=== PATIENT | male | born 1960 | race Caucasian/White ===

== ENCOUNTER 2025-06-07 21:49 | Emergency (ER) | payer BC, SELFPAY ==
--- OUTSIDE RECORDS SUMMARY | 2025-06-07 21:51 | XMS_ITS | Data Portability ---
Author Organization [place] - [facility], [facility] Address [address] [place] [address] Care Team Providers Care Maintenance Person Name Role Phone VOTELISABEL Primary Care Provider [phone] Assessment Encounter Date Assessment Date Assessment LastModified by Organization Details LastModified Time 04/05/2023 04/05/2023 62M s/p RALP + PLND on 03/30/21 for pT3aN0 [place] 3+4=7 prostate cancer (+SMS (left apex), -SVI, 0/9 LN). HOMERO. Reviewed risk of recurrence and need for ongoing follow-up for PSA monitoring. 1) Prostate cancer - f/u in 6 months with PSA 2) LLQ pain, mild, recurrent - no hernia on exam - CT A/P without contrast to eval for stones and hernia [email or web address] Not available 04/05/2023 09:28:36 10/11/2023 10/11/2023 63M s/p RALP + PLND on 03/30/21 for pT3aN0 [place] 3+4=7 prostate cancer (+SMS (left apex), -SVI, 0/9 LN). HMOERO. Reviewed risk of recurrence and need for ongoing follow-up for PSA monitoring. 1) Prostate cancer - f/u in 6 months with PSA 2) LLQ pain, mild, recurrent - possibly from kidney stones - no hernia on exam 3) Kidney stones - discussed stone prevention diet - f/u KUB in 6 months 4) Left renal atrophy - was told since HS had this - check NM renal scan to further evaluate this [email or web address] Not available 10/11/2023 10:08:08 04/10/2024 04/10/2024 63M s/p RALP + PLND on 03/30/21 for pT3aN0 [place] 3+4=7 prostate cancer (+SMS (left apex), -SVI, 0/9 LN). HOMERO. Reviewed risk of recurrence and need for ongoing follow-up for PSA monitoring. 1) Prostate cancer - f/u in 6 months with PSA 2) LLQ pain, mild, recurrent - possibly from kidney stones - no hernia on exam 3) Kidney stones - discussed stone prevention diet 4) Left renal atrophy - was told since HS had this - NM renal scan with essentially normal renal function [email or web address] Not available 04/10/2024 10:23:39 10/09/2024 10/09/2024 64M s/p RALP + PLND on 03/30/21 for pT3aN0 [place] 3+4=7 prostate cancer (+SMS (left apex), -SVI, 0/9 LN). HOMERO. Reviewed risk of recurrence and need for ongoing follow-up for PSA monitoring. 1) Prostate cancer - f/u in 6 months with PSA 2) LLQ pain, mild, recurrent - resolved 3) Kidney stones - stone prevention diet 4) Left renal atrophy - was told since HS had this - NM renal scan with essentially normal renal function 5) Erectile dysfunction - refill V20 [email or web address] Not available 10/09/2024 11:34:06 04/09/2025 04/09/2025 64M s/p RALP + PLND on 03/30/21 for pT3aN0 [place] 3+4=7 prostate cancer (+SMS (left apex), -SVI, 0/9 LN). HOMERO. Reviewed risk of recurrence and need for ongoing follow-up for PSA monitoring. 1) Prostate cancer - f/u in 6 months with PSA 2) LLQ pain, mild, recurrent - resolved 3) Kidney stones - stone prevention diet 4) Left renal atrophy - was told since HS had this - NM renal scan with essentially normal renal function 5) Erectile dysfunction - refill V20 [email or web address] Not available 04/09/2025 14:36:33 Plan of Treatment Reminders Order Date Submit Date Provider Last Modified By Organization Details Last Modified Time Details Appointments PSA 10 2024 09:50A M [facility] Not available Not available Not available ESTABL ISHED 10 2024 10:10A M Vaughn hayes MD, PHD Not available Not available Not available Lab PSA, serum or plasma 2024 025 [email or web address] [facility], [address], [place], [address], 04/09/2025 14:36:40 PSA, serum or plasma 2023 024 [email or web address] [facility], [address], [place], [address], 10/09/2024 10:50:39 PSA, serum or plasma 2023 024 [email or web address] [facility], [address], [place], [address], 04/10/2024 09:47:27 PSA, serum or plasma 2022 023 [email or web address] [facility], [address], [place], [address], 10/11/2023 09:15:27 PSA, serum or plasma 2022 023 [email or web address] [facility], [address], [place], [address], 04/05/2023 09:28:37 Referral None record ed. Procedures None record ed. Surgeries None record ed. Imaging XR, kidney + ureter + bladde r - See Dr. Go goel at 9:10am . PSA first. , PREV HERE 3 2022 023 [facility] , [address], [place], [address], 04/10/2024 10:24:21 NM, kidney scan - eval differ ential functi on and obstru ction, left hydro 2022 023 [facility], [address], [place], [address], 10/12/2023 13:35:29 CT, abdome n + pelvis , w/o contra st - LLQ PAIN, HX PROSTA TE CA, NO PREV 2022 023 [facility] , [address], [place], [address], 04/24/2023 18:24:53 Medication Orders silden afil (pulmo nary hypert ension ) 20 mg tablet 2023 024 [id number], [address] [address], [place], [address], 10/09/2024 11:34:11 Patient TargetsNo targets recorded. Patient InstructionsNo instructions recorded. Reason for Referral None Reported. Results Created Date Observation Date Name Description Value Unit Range Abnormal Flag Note LastModifiedBy Organization Detail LastModifiedTime 04/05/2004/05/2023 PSA, serum or plasm a PSA <0.04n g/mL 0-4.0 Not Available [facility] [address], [place], [address], 03/31/2023 12:06:19 10/11/20 23 10/11/2023 PSA, serum or plasm a PSA <0.04 ng/ml 0-4.0 Not Available [facility] [address], [place], [address], 10/09/2023 09:31:52 04/10/2004/10/2024 PSA, serum or plasm a PSA <0.04 ng/ml 0-4.0 NG/mL Not Available [facility] [address], [place], [address], 03/18/2024 17:04:17 10/09/20 24 10/09/2024 PSA, serum or plasm a PSA <0.04 ng/mL 0-4.0 NG/mL Not Available [facility] [address], [place], [address], 10/07/2024 19:46:19 04/09/20 25 04/09/2025 PSA, serum or plasm a PSA <0.04n g/ml 0-4.0 NG/mL Not Available [facility] [address], [place], [address], 04/08/2025 13:59:08 04/24/20 23 04/24/2023 CT, abdom en + pelvi s, w/o contr ast EXAM: CT, ABDOME N + PELVIS , W/O CONTRA ST [facility]ATI [facility] DATE/T JD: 023 2:55 PM CDT INDICA TION: Unspec ified abdomi nal pain. COMPAR DIPTI: CT abdome n and pelvis dated 021. Bone scan dated 021. TECHNI QUE: CT scan of the abdome n and pelvis was perfor med withou t IV contra st. Multip lanar reform ats were obtain ed. Dose reduct ion techni ques were used. CONTRA ST: None. FINDIN GS: LOWER CHEST: Normal . HEPATO BILIAR Y: A few small hepati c cysts, which do not requir e follow -up. Otherw ise normal within the limita tions of an unenha nced exam. PANCRE : Normal . SPLEEN : Normal . ADRENA L GLANDS : Normal . KIDNEY S/BLAD KYLIE: Mild left and minima l right hydron ephros is, which transi tions to decomp ressed ureter at the ureter opelvi c juncti on bilate rally. No ureter al calcul i. No right intrar enal calcul i. Four nonobs tructi ng calyce al tip stones within the left kidney , measur ing betwee n 2 mm and 3 mm in diamet er. No bladde r wall thicke funmilayo or bladde r stones . BOWEL: Normal . Normal append ix. LYMPH NODES: No lympha denopa thy. VASCUL ATURE: Normal calibe r abdomi nal aorta. Access ory right renal artery . PELVIC ORGANS : Prosta tectom y. MUSCUL OSKELE SABINA: Mild degene rative change s of the visual ized skelet on. No aggres sive osseou s lesion s. Trace fat-co ntaini ng perium bilica l hernia . IMPRES FAYE: 1. Mild left and probab le minima l right hydron ephros is, which transi tions to decomp ressed ureter at the UPJ bilate rally. Findin gs sugges tive of bilate ral UPJ obstru ctions . Consid er evalua tion with Lasix renogr am and/or CT urogra m. 2. Nonobs tructi ng calyce al tip stones within the left kidney . This report was electr onical ly interp reted by: Kamaljit pollack MD on 2022 at 17:22 [email or web address] [facility] [address], [place], [address], 05/04/2023 16:30:02 11/02/20 23 11/02/2023 NM, kidne y scan No observ ation record ed. NURY [facility] [address], [place], [address], 02/07/2024 16:54:06 04/10/20 24 04/10/2024 XR, kidne y + urete r + bladd er EXAM: XR, KIDNEY + URETER + BLADDE R [facility]ATI ON: [facility] [place] DATE: 024 INDICA TION: Calcul us of kidney COMPAR DIPTI: Correl ate with CT abdome n and pelvis perfor med on 023 IMPRES FAYE: Modera te stool burden is seen throug hout the colon. Nonobs tructi ve bowel gas patter n. 3 mm calcul us is noted overly ing the left kidney . No discre te calcif icatio ns are seen overly ing the right kidney . Multil evel degene rative change s are seen in the spine. This report was electr onical ly interp reted by: Hema Ortiz MD on 2023 at 09:21 [email or web address] [facility] [address], [place], [address], 08/10/2024 20:49:36 Result Notes Documentation Provider Name and Address Organization Details Recorded Time Ct, Abdomen + Pelvis, W/o Contrast : EXAM: CT, ABDOMEN + PELVIS, W/O CONTRAST [facility] [place] DATE/TIME: 04/24/2023 2:55 PM CDT INDICATION: Unspecified abdominal pain. COMPARISON: CT abdomen and pelvis dated 04/07/2021. Bone scan dated 12/09/2020. TECHNIQUE: CT scan of the abdomen and pelvis was performed without IV contrast. Multiplanar reformats were obtained. Dose reduction techniques were used. CONTRAST: None. FINDINGS: LOWER CHEST: Normal. HEPATOBILIARY: A few small hepatic cysts, which do not require follow-up. Otherwise normal within the limitations of an unenhanced exam. PANCREAS: Normal. SPLEEN: Normal. ADRENAL GLANDS: Normal. KIDNEYS/BLADDER: Mild left and minimal right hydronephrosis, which transitions to decompressed ureter at the ureteropelvic junction bilaterally. No ureteral calculi. No right intrarenal calculi. Four nonobstructing calyceal tip stones within the left kidney, measuring between 2 mm and 3 mm in diameter. No bladder wall thickening or bladder stones. BOWEL: Normal. Normal appendix. LYMPH NODES: No lymphadenopathy. VASCULATURE: Normal caliber abdominal aorta. Accessory right renal artery. PELVIC ORGANS: Prostatectomy. MUSCULOSKELETAL: Mild degenerative changes of the visualized skeleton. No aggressive osseous lesions. Trace fat-containing periumbilical hernia. IMPRESSION: 1. Mild left and probable minimal right hydronephrosis, which transitions to decompressed ureter at the UPJ bilaterally. Findings suggestive of bilateral UPJ obstructions. Consider evaluation with Lasix renogram and/or CT urogram. 2. Nonobstructing calyceal tip stones within the left kidney. This report was electronically interpreted by: Kamaljit Hyatt MD on 04/24/2023 at 17:22 RACHELE [facility] 05/04/2023 16:30:02 Xr, Kidney + Ureter + Bladder : EXAM: XR, KIDNEY + URETER + BLADDER LOCATION: [facility] DATE: 04/10/2024 INDICATION: Calculus of kidney COMPARISON: Correlate with CT abdomen and pelvis performed on 04/24/2023 IMPRESSION: Moderate stool burden is seen throughout the colon. Nonobstructive bowel gas pattern. 3 mm calculus is noted overlying the left kidney. No discrete calcifications are seen overlying the right kidney. Multilevel degenerative changes are seen in the spine. This report was electronically interpreted by: Hema Ortiz MD on 04/10/2024 at 09:[address] [facility] 08/10/2024 20:49:36 Problems Name Problem SNOMED Code Status Onset Date Resolution Date Notes Provider Name and Address Organization Details Recorded Time Prostate specific antigen above reference range 943966927 Active 2020 [facility] 16:10:11 Erectile dysfunction 529417331 Active 2020 Vaughn hayes MD, PHD [address] [place] [address], [address], [facility] 1 11:53:05 Abdominal pain 10986671 Active 2022 Vaughn hayes MD, PHD [address] [place], [place] [address]IT E [address] [place] [address], [address], [facility] 3 09:27:56 Kidney stone 94188506 Active 2022 Vaughn hayes MD, PHD [address] [place], [place] [address], [address], [facility] 3 10:02:35 Hydronephrosis 79212512 Active 2022 Vaughn hayes MD, PHD [address] [place] [address], [address], [facility] 3 10:06:53 Problem Notes None recorded. Procedures Surgical History Date Name Laterality Status Provider Name and Address Organization Details Recorded Time 04/09/20 25 COMPLEX VISIT completed Teri Jarrett [place] [facility] 04/08/2025 13:59:12 04/09/20 25 RAW FINISH MILL OPERATOR/blood draw completed Teri Jarrett [place] [facility] 04/08/2025 13:59:12 10/09/20 24 COMPLEX VISIT completed Vaughn Jeffers MD, PHD [address] [facility],[address], [place], [address], [facility] 10/09/2024 11:33:51 10/09/20 24 RAW FINISH MILL OPERATOR/blood draw completed Teri Jarrett [place] [facility] 10/07/2024 19:46:26 04/10/20 24 RAW FINISH MILL OPERATOR/blood draw completed Peyman Randolph [facility] 03/18/2024 17:04:15 10/11/20 23 RAW FINISH MILL OPERATOR/blood draw completed Teri Jarrett [place] [facility] 10/11/2023 09:03:15 04/05/20 23 RAW FINISH MILL OPERATOR/blood draw completed Ira Bower [facility] 04/05/2023 08:58:39 10/05/20 22 Blood Draw/RAW FINISH MILL OPERATOR/PSA RESULTS completed Guru Grubbs [facility] 10/05/2022 09:00:54 04/06/20 22 Blood Draw/RAW FINISH MILL OPERATOR/PSA RESULTS completed Teri Jarrett [facility] 04/06/2022 08:55:04 09/30/20 21 Blood Draw/RAW FINISH MILL OPERATOR/PSA RESULTS completed Kajal Patton [facility] 09/30/2021 09:18:12 05/19/20 21 Blood Draw/RAW FINISH MILL OPERATOR/PSA RESULTS completed Denise Delgado [facility] 05/19/2021 09:28:48 03/30/20 21 Prostatectomy completed Denise Delgado [facility] 04/07/2021 11:01:43 11/20/19 21 Prostate Biopsy Procedure completed Rancho Felix MD [address] [place] [address],[address], [place], [address], [facility] 11/20/2020 17:24:03 11/20/19 21 URONAV completed Rancho Felix MD [address] [place] [address],[address], [place], [address], [facility] 11/20/2020 16:49:03 11/20/19 21 Tobramycin Injection completed Ly Whatley [facility] 11/20/2020 16:18:21 08/13/20 19 screening colonoscopy completed Ly Whatley [facility] 11/20/2020 16:08:48 Imaging Results None recorded. Procedure Notes None recorded. Medical Equipment None Reported. Allergies Allergen ID Allergen Name Allergen Category Reaction Reaction Severity Criticality Documentation Date Start Date Code Code System Note Provider Name and Address Organization Details Recorded Time 545014 Product containin g penicilli n (product) medicatio n Not available Not available Not available 11/20/2020 41462 8001 SNOMED Ly Phylicia [facility] 16:10:26 Medications Name Sig Start Date Stop Date Status Note LastModified by Organization Details LastModified Time losartan 50 mg tablet TAKE ONE TABLET BY MOUTH ONE TIME DAILY* active Not Available Not Available No t Available atorvastati n 20 mg tablet TAKE ONE TABLET BY MOUTH ONE TIME DAILY AT BEDTIME* active Not Available Not Available No t Available metoprolol succinate ER 50 mg tablet,exte nded release 24 hr TAKE ONE TABLET BY MOUTH ONE TIME DAILY* active Not Available Not Available No t Available chlorthalid one 25 mg tablet TAKE ONE TABLET BY MOUTH ONE TIME DAILY* active Not Available Not Available No t Available amlodipine 5 mg tablet TAKE ONE TABLET BY MOUTH ONE TIME DAILY* active Not Available Not Available No t Available ciprofloxac in 500 mg tablet TAKE ONE TABLET BY MOUTH EVERY TWELVE HOURS FOR 4 DAYS 05/19 completed Not Available Not Available Not Available losartan 25 mg tablet TAKE ONE TABLET BY MOUTH ONE TIME DAILY* 10/09 completed Not Available Not Available Not Available oxycodone 5 mg tablet 04/06 completed Not Available Not Available Not Available tadalafil 5 mg tablet take 4 tablets (20 mg) by mouth once per week prior to sexual activity. active Not Available Not Available No t Available sildenafil (pulmonary hypertensio n) 20 mg tablet Take 1-5 tabs daily as needed. 2023 active Not Available Not Available Not Avai lable GaviLyte-G 236 gram-22.74 gram-6.74 gram-5.86 gram oral solution Drink 2 liters the day before the procedure and 2 liters 6 hours prior to procedure .* active Not Available Not Available No t Available Vitals Date Recorded Body height Body mass index (BMI) Body weight Provider Name and Address Organization Details Last Updated DateTime 04/05/2023 182.88 cm 29.2 kg/m2 [address]457.[address] [facility] 04/05/2023 08:57:31 Date Recorded Body height Body mass index (BMI) Body weight Provider Name and Address Organization Details Last Updated DateTime 04/09/2025 182.88 cm 28.5 kg/m2 20074.4 g Vaughn tom MD, PHD [address] [place] [address], [phone] [place] [address] 04/09/2025 14:17:03 Date Recorded Body height Body mass index (BMI) Body weight Provider Name and Address Organization Details Last Updated DateTime 04/10/2024 182.88 cm 28.5 kg/m2 94549.4 g Vaughn tom MD, PHD [address] [place] [address], [phone] [place] [address] 04/10/2024 09:41:51 Date Recorded Body height Body mass index (BMI) Body weight Provider Name and Address Organization Details Last Updated DateTime 10/09/2024 182.88 cm 28.5 kg/m2 07697.4 g Vaughn tom MD, PHD [address] [place] [address] 10/09/2024 11:25:01 Date Recorded Body height Body mass index (BMI) Body weight Provider Name and Address Organization Details Last Updated DateTime 10/11/2023 182.88 cm 28.8 kg/m2 16173.[address] [facility] 10/11/2023 09:02:48 Social History Question Answer Notes LastModified by Organizat ion Details LastModified Time Tobacco Smoking Status Never Smoker Ly edge [facility] 11/20/2020 16:18:23 What Was The Date Of Your Most Recent Tobacco Screening? 10/09/2024 Information not available 10/09/2024 Sex: Male Functional Status Question Answer Note LastModified by Organizat ion Details LastModified Time What is your level of alcohol consumption? None Information not available 04/07/2021 Do you or have you ever used smokeless tobacco? Never used smokeless tobacco Information not available 11/20/2020 Do you or have you ever used e-cigarettes or vape? Never used electronic cigarettes [email or web address] Information not available 11/20/2020 Mental Status None recorded. Family History Relationship Description Onset Age of this Age Resolved Age Notes LastModified by Organization Details LastModified Time Father No current problems or disability Not available 06/2021 16:10:02 Mother No current problems or disability [email or web address] Not available 06/2021 16:10:02 Medical History Condition Response Other Y High Blood Pressure Y Cancer Y High Cholesterol Y Immunizations Vaccine Type Date Status Note Provider Nam e and Address Organization Details Recorded Time Influenza, split virus, quadrivalent, preservative 9 completed Cordelia [place] null, [facility] 11/01/2023 17:32:12 COVID-19, mRNA, LNP-S, PF, 30 mcg/0.3 mL dose 1 [facility]/01[facility]2023 17:32:12 COVID-19, mRNA, LNP-S, PF, 30 mcg/0.3 mL dose 1 completed Cordelia Kathie null, [facility] 11/01/2023 17:32:12 Tdap 0 completed Cordelia [place] null, [facility] 11/01/2023 17:32:12 Tdap 6 completed Cordelia [place] null, [facility] 11/01/2023 17:32:12 Influenza, split virus, quadrivalent, PF 8 completed Cordelia [place] null, [facility] 11/01/2023 17:32:13 Influenza, split virus, quadrivalent, PF 0 completed [facility] [place] [facility] 11/01/2023 17:32:13 Past Encounters Encounter ID Performer Location Encounter Start Date Encounter Closed Date Diagnosis/Indication Diagnosis SNOMED-CT Code Diagnosis ICD10 Code Diagnosis Note [id number] Rancho Felix MD [facility] [address] [facility],[address] [place] [address] 11/20/2020 15:35:17 11/23/2020 11:15:10 Prostate specific antigen above reference range 756407615 R97.20 1. Elevated PSA - PI-RADS 5 lesion (anterior apex) - highly suspicious for prostate cancer - s/p UroNav bx with sextant bxs - complete course of abx - will call with bx results when available [id number] Rancho Felix MD [address] [place] [id number] 12/16/2020 16:51:19 12/17/2020 15:36:48 Carcinoma of prostate 186318377 C61 1. Prostate cancer - T1c - [place] 4+3 = 7 - we reviewed the prostate biopsy results, Emilio table data, and Bone scan results- treatment options discussed included expectant management , hormonal therapy, cryotherap y, HIFU, radiation (Brachythe rapy and EBRT/Ganga n beam), and surgery (Robot-ass isted laparoscop ic prostatect sonia and open Radical retropubic prostatect sonia with bilateral pelvic lymph node dissection ). Risks of surgery include bleeding, infection, hernia, rectal injury, urinary incontinen ce, erectile dysfunctio n, and lymphocele formation. - he is concerned about risk of incontinen ce and ED- his questions were answered today - he is leaning towards EBRT (may need 6-12 months of Hormonal therapy as well)- I recommende d obtaining second opinions- he will contact me after further research / 2nd opininions [id number] Vaughn case MD, PHD [address] [place] [place] [id number] 12/30/2020 08:54:58 01/04/2021 13:06:44 Malignant neoplasm of prostate 604282365 C61 [id number] Vaughn case MD, PHD [address] [place] [place] [id number] 04/07/2021 10:10:41 04/09/2021 10:09:21 Malignant neoplasm of prostate 418447671 C61 Erectile dysfunction 860 884925 F52.21 [id number] Vaughn case MD, PHD [facility] [address] [place], [place] [id number] 05/19/2021 09:14:47 05/24/2021 11:34:27 Malignant neoplasm of prostate 204296781 C61 Erectile dysfunction 860 608298 F52.21 Prostate s pecific antigen above reference range 085809660 R97.20 [id number] Vaughn case MD, PHD [facility] [address] [place], [place] [id number] 09/30/2021 08:56:01 10/04/2021 09:51:13 Prostate specific antigen above reference range 896887247 R97.20 Malignant neoplasm of prostate 712106110 C61 Erectile dysfunction 860 465169 F52.21 [id number] Vaughn case MD, PHD [facility] [address] [place], [place] [address] 04/06/2022 08:46:46 04/08/2022 09:59:26 Malignant neoplasm of prostate 045487249 C61 Prostate s pecific antigen above reference range 806267189 R97.20 Erectile dysfunction 860 574311 F52.21 [id number] Vaughn case MD, PHD [address] [place], [place] [id number] 10/05/2022 08:54:19 10/10/2022 12:24:10 Malignant neoplasm of prostate 574209976 C61 Prostate s pecific antigen above reference range 557649936 R97.20 Erectile dysfunction 860 559476 F52.21 [id number] Vaughn case MD, PHD [facility] [address] [place], [place] [id number] 04/05/2023 08:49:55 04/12/2023 12:22:48 Malignant neoplasm of prostate 264152267 C61 Prostate s pecific antigen above reference range 777216236 R97.20 Erectile dysfunction 860 788564 F52.21 Abdominal pain 47007392 R10.9 [id number] Vaughn case MD, PHD [address] [place] [id number] 10/11/2023 08:50:24 10/13/2023 10:06:43 Malignant neoplasm of prostate 042414650 C61 Erectile dysfunction 860 837223 F52.21 Kidney stone 79622163 N2 0.0 Hydronephrosis 29309095 N13.30 [id number] Vaughn case MD, PHD [place] [address] [place] [id number] 04/10/2024 09:19:17 04/10/2024 11:35:04 Malignant neoplasm of prostate 645210489 C61 Erectile dysfunction 860 239886 F52.21 Kidney stone 00976226 N2 0.0 Hydronephrosis 92363410 N13.30 [id number] Vaughn case MD, PHD [address] [place] [address] 10/09/2024 10:24:11 10/11/2024 17:45:47 Malignant neoplasm of prostate [id number] C61 Erectile dysfunction [id number] F52.21 [id number] Vaughn case MD, PHD [address] [place] [address] 04/09/2025 13:48:35 04/16/2025 14:34:47 Malignant neoplasm of prostate [id number] C61 Erectile dysfunction [id number] F52.21 Health Concerns Section Related Observation LastModified by Organization Detai ls LastModified Time None Recorded Concern Status LastModified by Organization Details LastModified Time None Recorded Advance Directives Directive None Recorded Payers Insurance Date Sequence Insurance Name Policy Number Policy Stafford Covered Member ID Stafford Member ID Guarantor Name 04/16/2025 1 [id number] Anthony Ryan [id number] Anthony Ryan Notes Date Note Type Note Provider Name and Address Organization Details Recorded Time 04/05/2023 text/html ROS as noted in the HPI 62M s/p RALP + PLND on 03/30/21 for pT3aN0 [place] 3+4=7 prostate cancer (+focal SMS (left apex), -SVI, 0/9 LN). Doing well. Occasional shooting pain in lower left; shooting to testicle. Voiding well, some urinary urgency/frequency. No hematuria. Good stream. Noct x 1. Gets spontaneous erections, doesnt need PDE5i. UF: 11/17 Date total continence: 05/13/21 EF: 11/17 PSA Results 05/19/21: <0.: <0.045/: <0.: <0.045/: <0.04 Vaughn Jeffers MD, PHD [address] [place] [address],[address], [address], [facility] 04/05/2023 09:28:53 10/11/2023 text/html ROS as noted in the [facility] 63 s/p RALP + PLND on 03/30/21 for pT3aN0 [place] 3+4=7 prostate cancer (+focal SMS (left apex), -SVI, 0/9 LN). Doing well. Rare shooting pain in lower left; shooting to testicle. Voiding well, some urinary urgency/frequency. No hematuria. Good stream. Noct x 1. CT A/P 04/24/23: mild renal pelvis dilation, few small kidney stones Gets spontaneous erections, doesn't need PDE5i. UF: 11/17 Date total continence: 05/13/21 EF: 11/17 PSA Results 05/19/21: <0.: <0.045/: <0.: <0.045/: <0.: <0.04 Vaughn Jeffers MD, PHD [address] [facility],[address], [place], [address], [facility] 10/11/2023 10:10:26 04/10/2024 text/html ROS as noted in the [facility] 63M s/p RALP + PLND on 03/30/21 for pT3aN0 [place] 3+4=7 prostate cancer (+focal SMS (left apex), -SVI, 0/9 LN). Doing well. Voiding well, some urinary urgency/frequency. No hematuria. Good stream. Noct x 1. CT A/P 04/24/23: mild renal pelvis dilation, few small kidney stonesNM Renal scan 11/02/23: Left 54% and t1/2 12 min, Right 46% and t1/2 9 minKUB 04/10/24: 2 mm LLP stone Gets spontaneous erections, doesn't need PDE5i. UF: 11/17 Date total continence: 05/13/21 EF: 11/17 PSA Results 05/19/21: <0.: <0.045/: <0.: <0.045/: <0.: <0.045: <0.04 Vaughn Jeffers MD, PHD [address] [place] [address],[address], [address], [facility] 04/10/2024 10:24:13 10/09/2024 text/html ROS as noted in the HPI 64M s/p RALP + PLND on 03/30/21 for pT3aN0 [place] 3+4=7 prostate cancer (+focal SMS (left apex), -SVI, 0/9 LN). Doing well. Voiding well, some urinary urgency/frequency. No hematuria. Good stream. Noct x 1. CT A/P 04/24/23: mild renal pelvis dilation, few small kidney stonesNM Renal scan 11/02/23: Left 54% and t1/2 12 min, Right 46% and t1/2 9 minKUB 04/10/24: 2 mm LLP stone Gets spontaneous erections, doesn't need PDE5i but sometime better with V20. UF: 11/17 Date total continence: 05/13/21 EF: 11/17 PSA Results 05/19/21: <0.: <0.045/: <0.: <0.045/: <0.: <0.045: <0.: <0.04 Vaughn Jeffers MD, PHD [address] [facility],[address], [place], [address], [facility] 10/09/2024 11:34:24 04/09/2025 text/html ROS as noted in the HPI 64M s/p RALP + PLND on 03/30/21 for pT3aN0 [place] 3+4=7 prostate cancer (+focal SMS (left apex), -SVI, 0/9 LN). Doing well. Voiding well, some urinary urgency/frequency. No hematuria. Good stream. Noct x 1. CT A/P 04/24/23: mild renal pelvis dilation, few small kidney stonesNM Renal scan 11/02/23: Left 54% and t1/2 12 min, Right 46% and t1/2 9 minKUB 04/10/24: 2 mm LLP stone Gets spontaneous erections, doesn't need PDE5i but sometime better with V20. UF: 11/17 Date total continence: 05/13/21 EF: 11/17 PSA Results05/19/21: <0.: <0.045/: <0.: <0.045: <0.: <0.045: <0.: <0.045: <0.04 Vaughn Jeffers MD, PHD [address] [facility],[address], [place], [address], [facility] 04/09/2025 14:36:54
--- OUTSIDE RECORDS SUMMARY | 2025-06-07 21:51 | XMS_ITS | Clinical Summary ---
Author Organization [facility] Address [address] [place] [address] Care Team Providers Care Ibm Mainframe Developer Name Role Phone MiketeManny rose MD Primary Care Provider + Allergies Active Allergy Reactions Criticality Noted Date Comments Penicillins Hives 10/05/2011 Medications aspirin (ECOTRIN) 81 mg enteric coated tabletIndication s:Hypertension Take 1 tablet by mouth once daily with a meal. 0 04/12/2016 Active losartan (COZAAR) 50 mg tabletIndication s:Hypertension Take 1 Tablet (50 mg) by mouth once daily. 90 Tablet 3 10/01/2024 Active amLODIPine (NORVASC) 5 mg tabletIndication s:Hypertension Take 1 Tablet (5 mg) by mouth once daily. 90 Tablet 3 10/01/2024 Active atorvastatin (LIPITOR) 20 mg tabletIndication s:Dyslipidemia, goal LDL below 130 Take 1 Tablet (20 mg) by mouth at bedtime. 90 Tablet 3 10/01/2024 Active chlorthalidone (HYGROTON) 25 mg tabletIndication s:Hypertension Take 1 Tablet (25 mg) by mouth once daily. 90 Tablet 3 10/01/2024 Active metoprolol succinate (TOPROL XL) 50 mg sustained-releas e tabletIndication s:Hypertension Take 1 Tablet (50 mg) by mouth once daily. 90 Tablet 3 10/01/2024 Active Active Problems Problem Noted Date Diagnosed Date Liver cyst 06/28/2023 Overview (06/28/2023): Jun 2023: Small liver cyst found on CT heart scan incidentally. Radiologist recommended possible ultrasound. Need to discuss at follow up. Elevated coronary artery calcium score 3 Overview (06/28/2023): Jun 2023: Heart scan shows calcium score of 156 which is 74th percentile. Prostate cancer 03/16/2021 Elevated cholesterol 10/24/2018 Colon polyp 04/29/2016 Overview (10/31/2024): Colonoscopy 04/2016 large polyp repeat in 6 months at [facility] Colonoscopy 08/2019 polyps, repeat in 3 years Colonoscopy 10/2024 2-TA, repeat in 5 years Sensation of foreign body in eye 10/05/2011 Hypertension Non-functioning kidney Overview (05/13/2015): discovered in highschool Immunizations Immunization Administration Dates Next Due COVID-19 vaccine (Valentin Uzhun 30mcg/0.3mL) P F, MDV 03/06/2021,02/13/2021 Influenza, IIV4 09/09/2020,07/23/2018 Influenza, IIV4 (=>6mos) MDV 08/15/2019 Tdap 04/12/2016,03/05/2010 Family History Medical History Relation Name Comments Heart Disease Father stents Cancer-colon Mother Relation Name Status Comments Father Mother Social History Tobacco Use Types Packs/Day Years Used Date Smoking Tobacco: Never Smokeless Tobacco: Current Chew Tobacco Cessation:Ready to Q uit: Not Asked; Counseling Given: Yes Comments:on and off Alcohol Use Standard Drinks/Week Comments Yes 0 (1 standard drink = 0.6 oz pur e alcohol) 14 drinks per week PHQ-2 Answer Date Recorded PHQ-2 TOTAL SCORE 0 10/01/2024 Social Connections Answer Date Recorded Do you often feel lonely or isolated from those around you? 0 01/14/2025 Financial Resource Strain Answer Date R ecorded Difficulty of Paying Living Expenses 3 09/26/2024 Difficulty of Paying Living Expenses Not on file 09/26/2024 Food Insecurity Answer Date Recorded Do you worry your food will run out before you are able to buy more? 1 01/14/2025 Transportation Needs Answer Date Record ed Does lack of transportation keep you from medica l appointments? 1 01/14/2025 Does lack of transportation keep you from work, meetings or getting things that you need? 1 01/14/2025 Housing Stability Answer Date Recorded What is your housing situation today? 1 01/14/2025 Utilities Answer Date Recorded Do you have trouble paying f or utilities (for example, heat, electricity, water, phone)? 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 Not on file Not on file Obstetrics History Last Filed Vital Signs Vital Sign Reading Time Taken Comments Blood Pressure 142/81 01/14/2025 2:24 PM MULTIMEDIA AUTHOR Pulse 74 01/14/2025 2:24 PM MULTIMEDIA AUTHOR Temperature 36.8 C (98.2 F) 10/01/2024 7:29 AM MULTIMEDIA AUTHOR Respiratory Rate 12 07/06/2017 2:49 PM CDT Oxygen Saturation 96% 01/14/2025 2:24 PM MULTIMEDIA AUTHOR Inhaled Oxygen Concentration - - Weight 101.6 kg (224 lb) 01/14/2025 2:24 PM MULTIMEDIA AUTHOR Height 179 cm (5' 10.47) 10/31/2024 7:30 AM MULTIMEDIA AUTHOR Body Mass Index 31.71 10/31/2024 7:30 AM MULTIMEDIA AUTHOR Plan of Treatment Health Maintenance Due Date Last Done Comments Pneumococcal series for age 50+ (1 of 2 - PCV) 1981 Zoster (shingles) series for age 50+ (1 of 2) 2012 RSV vaccine for adults or (1 - Risk 60-74 years 1-dose series) 2022 COVID-19 vaccine series ( - season) 2024 03/06/2021, 02/13/2021 Influenza Vaccine (#1) 2025 , 08/15/2019, 07/23/2018 Depression screening for age 12+ 10/01/2025 10/01/2024, 10/01/2024, 06/09/2023, Additional history exists BMI (ht and wt on same day) for age 18+ 10/31/2025 10/31/2024, 10/01/2024, 06/09/2023, Additional history exists Tetanus booster 04/12/2026 04/12/2016, 03/05/2010 Lipids for age 45-75 10/01/2029 10/01/2024, 06/09/2023, 05/12/2022, Additional history exists Colonoscopy through age 75 10/29/202910/29, 09/09/2019, 09/09/2019, Additional history exists HIV for age 15-65 Completed 09/09/2020 Hepatitis C screening for age 18-79 Completed 09/09/2020 Hepatitis B series for 19+ Aged Out N o longer eligible based on patient's age to complete this topic Procedures Procedure Name Priority Date/Time Associated Diagnosis Comments COLONOSCOPY SCREENING Routine 10/29/2024 12:00 AM MULTIMEDIA AUTHOR Adenomatous polyp of colon, unspecified part of colon LIPID PANEL W REFLEX MEASURED LDL Routine 10/01/2024 8:56 AM MULTIMEDIA AUTHOR Dyslipidemia, goal LDL below 130 ANTI HIV 1/2 Routine 09/09/2020 9:29 AM CDT Screen for STD (sexually transmitted disease) ANTI HCV Routine 09/09/2020 9:29 AM CDT Screen for STD (sexually transmitted disease) from Last 3 Months or Most Recently Relevant to Health Maintenance Results * COLONOSCOPY SCREENING (10/29/2024 12:00 AM MULTIMEDIA AUTHOR) us Manny Coffey MD GI PROCEDURE ORD Final R esult * LIPID PANEL W REFLEX MEASURED LDL (10/01/2024 8:56 AM MULTIMEDIA AUTHOR) CHOLESTEROL, TOTAL 161 <200 mg/dL [facility] HDL CHOLESTEROL 46 > OR = 40 mg/dL [facility] TRIGLYCERIDES 136 <150 mg/dL [facility] LDL-CHOLESTEROL 92 mg/dL (calc) [facility] Comment: Reference range: <100 Desirable range <100 mg/dL for primary prevention; <70 mg/dL for patients with CHD or diabetic patients with > or = 2 CHD risk factors. LDL-C is now calculated using the David calculation, which is a validated novel method providing better accuracy than the Friedewald equation in the estimation of LDL-C. Juan José JAY et al. MAURI. 2013;310(19): 9275-6387 (http://education.Aquiris/faq/BRQ482) CHOL/HDLC RATIO 3.5 <5.0 (calc) [facility] NON HDL CHOLESTEROL 115 <130 mg/dL (calc) [facility] Comment: For patients with diabetes plus 1 major ASCVD risk factor, treating to a non-HDL-C goal of <100 mg/dL (LDL-C of <70 mg/dL) is considered a therapeutic option. Blood BLOOD SPECIMEN / Unknown 10/01/2024 8:56 AM MULTIMEDIA AUTHOR 10/01/2024 8:56 AM MULTIMEDIA AUTHOR Manny Coffey MD CHEMISTRY Final Re sult Performing Organization Address City/[facility]/ZIP Co de Phone Number [employer] [address] [phone], [facility] [address] [place] [phone] * ANTI HCV (09/09/2020 9:29 AM CDT) HEPATITIS C ANTIBODY Non-React jewel Non-React jewel 09/09/2020 6:08 PM CDT [facility] Comment:Antibodies to HCV no t detected; does not exclude the possibility of exposure to HCV. Blood BLOOD SPECIMEN / Unknown Venipuncture / Unknown 09/09/2020 9:29 AM CDT 09/09/2020 9:30 AM CDT Manny Coffey MD SEND OUTS Final Re sult [facility] [employer] [facility] [address] [place] [address], [place] * ANTI HIV 1/2 (09/09/2020 9:29 AM CDT) HIV-1/HIV-2 ANTIBODY Non-Reacti ve Non-Reacti ve 09/09/2020 6:11 PM CDT [facility] Comment:HIV-1 p24 and HIV-1/ HIV-2 Ab not detected. Blood BLOOD SPECIMEN / Unknown Venipuncture / Unknown 09/09/2020 9:29 AM CDT 09/09/2020 9:30 AM CDT us Manny Coffey MD SEND OUTS Final Re sult [facility] [address] [place] [address], [place] from Last 3 Months or Most Recently Relevant to Health Maintenance Insurance [facility] Care Teams Ibm Mainframe Developer Relationship Specialty Start Date End Date Manny Coffey MD [address] [place] [address] PCP - General Family Practice 06/09/23
--- OUTSIDE RECORDS SUMMARY | 2025-06-07 21:51 | XMS_ITS | Clinical Summary ---
Author Organization [facility] Address [address] [place] [address] Care Team Providers Care Shale Miner Blasting Name Role Phone Mikehugorose Manny Bullard Primary Care Provider [phone] Allergies Active Allergy Reactions Criticality Noted Date Comments Penicillins Hives 10/05/2011 Medications atorvastatin (LIPITOR) 20 MG tablet Take 20 mg by mouth every evening Active losartan (COZAAR) 25 MG tablet Take 25 mg by mouth every morning Active chlorthalidone (HYGROTON) 25 MG tablet Take 25 mg by mouth every morning Active amLODIPine (NORVASC) 5 MG tablet Take 5 mg by mouth every morning Active metoprolol succinate ER (TOPROL-XL) 50 MG 24 hr tablet Take 50 mg by mouth every morning Active aspirin 81 MG EC tabletIndicatio ns:Prostate cancer (H) Take 1 tablet (81 mg) by mouth daily 1 Active acetaminophen (TYLENOL) 325 MG tabletIndicatio ns:Prostate cancer (H) Take 3 tablets (975 mg) by mouth every 6 hours as needed for mild pain 1 Active oxyCODONE (ROXICODONE) 5 MG tabletIndicatio ns:Prostate cancer (H) Take 1 tablet (5 mg) by mouth every 4 hours as needed for moderate to severe pain 12 tablet 1 Active senna-docusate (SENOKOT-S/DERRICK COLACE) 8.6-50 MG tabletIndicatio ns:Prostate cancer (H) Take 1 tablet by mouth 2 times daily as needed for constipation 30 tablet 1 1 Active Active Problems Problem Noted Date Diagnosed Date Prostate cancer 03/30/2021 Social History Tobacco Use Types Packs/Day Years Used Date Smoking Tobacco: Never Smokeless Tobacco: Current Chew Alcohol Use Standard Drinks/Week Comments Yes 0 (1 standard drink = 0.6 oz pur e alcohol) occasionally Adolescent Education Answer Date Record ed Getting School Help Needed Not on file 08/20 Sex and Gender Information Value Date Recorded Sex Assigned at Not on file Legal Sex Male 4:20 AM 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 TEACHER Gender Identity Not on file Sexual Orientation Not on file Last Filed Vital Signs Vital Sign Reading Time Taken Comments Blood Pressure 111/60 03/31/2021 7:41 AM CDT Pulse 72 03/31/2021 7:41 AM CDT Temperature 36.8 C (98.2 F) 03/31/2021 7:41 AM CDT Respiratory Rate 16 03/31/2021 7:41 AM CDT Oxygen Saturation 94% 03/31/2021 7:41 AM CDT Inhaled Oxygen Concentration - - Weight 98.2 kg (216 lb 6.4 oz) 03/30/2021 5:42 A M CDT Height 182.9 cm (6') 03/30/2021 5:42 AM CDT Body Mass Index 29.35 03/30/2021 5:42 AM CDT Plan of Treatment Health Maintenance Due Date Last Done Comments ADVANCE CARE PLANNING 1962 ANNUAL REVIEW OF HM ORDERS 1962 CT COLONOGRAPHY 1962 FIT 1962 FLEX SIG 1962 LIPID 1962 sDNA (Cologuard) 1962 PNEUMOCOCCAL VACCINE 50+ YEARS (1 of 1 - PCV) 2012 ZOSTER VACCINE (1 of 2) 2012 DIABETES SCREENING 03/31/2024 03/31/2021 COVID-19 VACCINE ( season) 2024 03/06/2021, 02/13/2021 PHQ-2 (once per calendar year) 2024 INFLUENZA VACCINE (#1) 2025 , 08/15/2019, 07/23/2018 YEARLY PREVENTIVE VISIT 10/01/2025 10/01/20 24, 06/09/2023, 05/12/2022, Additional history exists DTAP/TDAP/TD VACCINE (3 - Td or Tdap) 04/12/2026 04/12/2016, 03/05/2010 COLONOSCOPY 10/29/2034 10/29/2024, 08/14, 08/13/2019 COLORECTAL CANCER SCREENING 10/29/2034 RSV VACCINE (1 - 1-dose 75+ series) 2037 HEPATITIS C SCREENING Completed 09/09/2020 HIV SCREENING Completed 09/09/2020 HPV VACCINE (No Doses Required) Completed MENINGITIS VACCINE Aged Out No longer eligible based on patient's age to complete this topic Procedures Procedure Name Priority Date/Time Associated Diagnosis Comments BASIC METABOLIC PANEL Routine 03/31/2021 6:43 AM CDT from Last 3 Months or Most Recently Relevant to Health Maintenance Results * (ABNORMAL) Basic metabolic panel (03/31/2021 6:43 AM CDT) Sodium 136 133 - 144 mmol/L 03/31/2021 7:07 AM [facility] Potassium 3.1(L) 3.4 - 5.3 mmol/L 03/31/2021 7:07 AM [facility] Chloride 102 94 - 109 mmol/L 03/31/2021 7:07 AM [facility] Carbon Dioxide 27 20 - 32 mmol/L 03/31/2021 7:17 AM [facility] Anion Gap 7 3 - 14 mmol/L 03/31/2021 7:17 AM [facility] Glucose 110(H) 70 - 99 mg/dL 03/31/2021 7:17 AM [facility] Urea Nitrogen 27 7 - 30 mg/dL 03/31/2021 7:17 AM [facility] Creatinine 1.38(H) 0.66 - 1.25 mg/dL 03/31/2021 7:17 AM [facility] GFR Estimate 56(L) >60 mL/min/{1 .73_m2} 03/31/2021 7:17 AM [facility] Comment: Non GFR Calc Starting 10/30/2018, serum creatinine based estimated GFR (eGFR) will be calculated using the Chronic Kidney Disease Epidemiology Collaboration (CKD-EPI) equation. GFR Estimate If Black 65 >60 mL/min/{1 .73_m2} 03/31/2021 7:17 AM CDT [facility] Comment: GFR Calc Starting 10/30/2018, serum creatinine based estimated GFR (eGFR) will be calculated using the Chronic Kidney Disease Epidemiology Collaboration (CKD-EPI) equation. Calcium 8.0(L) 8.5 - 10.1 mg/dL 03/31/2021 7:17 AM CDT [facility] Blood 03/31/2021 6:43 AM CDT 03/31/2021 6:44 AM CDT Milla Hyatt PA-C LAB - BLOOD ORDERABLE S Final Result [facility] [address] [place], [place] [address] [phone] from Last 3 Months or Most Recently Relevant to Health Maintenance Insurance [facility] Advance Directives For more information, please contact: [phone] * Full Code (Latest Code Status on File) Date Activated Date Inactivated Comments 03/30/2021 2:25 PM 03/31/2021 2:13 PM All basic an d advanced life-sustaining interventions are performed as appropriate Question Answer Comments Code status determined by: Unable to dis cuss and no AD/POLST on file; continue PREVIOUSLY ORDERED code status Care Teams [employer]ale [employer]asting Relationship Specialty Start Date End Date Votel, Manny ACEVEDO: [phone] [address] [facility] [place] [id number] PCP - General Family Medicine 03/10/21
[2025-06-07 22:01] VITALS: BP 144/81; PULSE 71; RESP 16; TEMP 36.2; O2SAT 97; BMI 29.2
--- NOTE | 2025-06-07 23:51 | ED.GENADULT ---
HPI - General Adult General Date Seen: 06/07/25 Chief complaint: Dental/Oral/Mouth Injury/Pain Stated complaint: toothache Time Seen by Provider: 06/07/25 21:50 History of Present Illness HPI narrative: Patient is a 64-year-old who presents for evaluation of tooth pain. He says that he has been having progressively worsening pain throughout the day today. He put in a call to an emergency dentist in [place] but has not heard back yet, he believes they are open on Monday so he is hoping maybe he will be able to get seen tomorrow. In the meantime, he says pain is severe, not responding to ibuprofen at home and he is not sure how he is going to sleep. He does not have any facial swelling, redness, no fevers. He has a history of a significant dental infection about 10 years ago and he says this feels similar. He has not had any dental care for few years because he says his dad was a dentist and his dad has not , he has not seen anybody since his dad . Related Data Home Medications ?Medication ?Instructions ?Recorded ?Confirmed amlodipine 5 mg tablet 5 mg PO DAILY 06/07/25 06/07/25 atorvastatin 20 mg tablet 20 mg PO QPM 06/07/25 06/07/25 chlorthalidone 25 mg tablet 25 mg PO DAILY 06/07/25 06/07/25 losartan 50 mg tablet 50 mg PO DAILY 06/07/25 06/07/25 metoprolol succinate 50 mg 50 mg PO DAILY 06/07/25 06/07/25 tablet,extended release 24 hr Allergies Allergy/AdvReac Type Severity Reaction Status Date / Time Penicillins Allergy Unknown Verified 06/07/25 21:54 [facility] Medical History Elevated coronary artery calcium score ?R93.1 - Abnormal findings on diagnostic imaging of heart and coronary circulation (ICD-10) Colon polyp ?K63.5 - Polyp of colon (ICD-10) Liver cyst ?K76.89 - Other specified diseases of liver (ICD-10) Prostate cancer ?C61 - Malignant neoplasm of prostate (ICD-10) Non-functioning kidney ?N28.9 - Disorder of kidney and ureter, unspecified (ICD-10) Elevated cholesterol ?E78.00 - Pure hypercholesterolemia, unspecified (ICD-10) Hypertension ?I10 - Essential (primary) hypertension (ICD-10) Surgical History H/O radical prostatectomy ?Z90.79 - Acquired absence of other genital organ(s) (ICD-10) Social History Smoking Status: Never smoker Do you use any of these nicotine containing products: Smokeless Tobacco Second hand tobacco smoke exposure: No How often do you have a drink containing alcohol: 4 or more times a week How many standard drinks containing alcohol do you have on a typical day: 1 or 2 AUDIT-C Alcohol total score: 4 Non-prescribed substance use: denies use service: No Exam Narrative: Exam Narrative: Vital signs reviewed In general, alert, nontoxic male. He looks uncomfortable. Head: Normocephalic, atraumatic. ENT: He has a missing left lower molar, has tenderness to palpation of the most posterior molar next to that space. I do not feel any evidence of abscess surrounding the tooth, and he does not have any swelling over his jaw. Neck: Supple without adenopathy. Airway patent. Const: Vital Signs, click to edit/add: Vital Signs - 24 hr 06/07/25 22:01 Temperature 97.2 F L Pulse Rate [Pulse Oximeter] 71 Respiratory Rate 16 Blood Pressure [Le ft Upper Arm] 144/81 H Pulse Oximetry 97 Oxygen Delivery Me thod Room Air Course Course ED Course: We discussed options. He did elect to proceed with a dental block. Procedure note initially ejected 1 mL of 0.25% bupivacaine doing inferior alveolar nerve block. He had incomplete anesthesia with this I did do a 2nd block with another 1 mL more posteriorly. Otherwise tolerated well without complication. I reviewed his records in the prescription monitoring database, he does not have any prior prescriptions for narcotics. I think it is reasonable to give him a few to last over the next day or so. Otherwise we talked about use of ibuprofen plus Tylenol together. I will also prescribe an antibiotic for him, azithromycin given his amoxicillin allergy, and then he will proceed with dental follow-up as soon as possible. Reviewed reasons to return such as facial swelling, fevers, or other worsening. Vital Signs Vital signs: Initial Vital Signs Temperature 97.2 F L 06/07/25 22:01 Temperature Source Temporal Artery Scan 06/07/25 22:01 Pulse Rate 71 06/07/25 22:01 Respiratory Rate 16 06/07/25 22:01 Blood Pressure 144/81 H 06/07/25 22:01 Blood Pressure Mean 102 06/07/25 22:01 Blood Pressure Position Sitting 06/07/25 22:01 Pulse Oximetry 97 06/07/25 22:01 Oxygen Delivery Method Room Air 06/07/25 22:01 Vital Signs Temperature 97.2 F L 06/07/25 22:01 Pulse Rate 71 06/07/25 22:01 Respiratory Rate 16 06/07/25 22:01 Blood Pressure 144/81 H 06/07/25 22:01 Pulse Oximetry 97 06/07/25 22:01 Oxygen Delivery Method Room Air 06/07/25 22:01 Temperature 97.2 F L 06/07/25 22:01 Pulse Rate 71 06/07/25 22:01 Respiratory Rate 16 06/07/25 22:01 Blood Pressure 144/81 H 06/07/25 22:01 Pulse Oximetry 97 06/07/25 22:01 Oxygen Delivery Method Room Air 06/07/25 22:01 Discharge Plan Discharge Clinical Impression: Toothache Patient Disposition: Home, Self-Care Condition: Stable Instructions: Toothache (ED) Additional Instructions: As planned, follow up with a dentist as soon as possible. Take antibiotic as prescribed. Baseline pain control, ibuprofen 400 mg plus Tylenol 1000 mg. If needed for uncontrolled pain, oxycodone. For facial swelling, fevers, or other worsening, return to the ER. Prescriptions: No Action losartan 50 mg tablet 50 mg PO DAILY atorvastatin 20 mg tablet 20 mg PO QPM metoprolol succinate 50 mg tablet extended release 24 hr 50 mg PO DAILY chlorthalidone 25 mg tablet 25 mg PO DAILY amlodipine 5 mg tablet 5 mg PO DAILY Follow Up/Referrals: Manny Coffey MD [Primary Care Provider, Family Practice] Stand Alone Forms: MyHealth Info Instructions
== END 2025-06-07 23:06 | disposition home or self-care (01) ==
LOC: ED 22:29
PROVIDERS: Emergency Provider Emergency Medicine; PCP Family Medicine
DX: K08.89 Other specified disorders of teeth and supporting structures (principal)
CPT/HCPCS: 99283